=== PATIENT | male | born 1960 | race Caucasian/White ===

== ENCOUNTER 2023-07-22 18:05 | Inpatient (IN) | payer OTHER, SELFPAY ==
[2023-07-22] VITALS (14 sets, daily range): BP systolic 117–166; BP diastolic 70–101; BMI 30.2
[2023-07-22 16:00] LABS: Glucose - Point of Care > 600 mg/dl (70-99)
--- NOTE | 2023-07-22 16:08 | ED.GENMED ---
History of Present Illness
<Craig Guzmán DO - Last Filed: 07/22/23 17:20>
General
Chief Complaint: Seizure
Time Seen by Provider: 07/22/23 15:59
Travel History
Have you had any contact with someone who has COVID-19?: Unable to Answer
Do you have any symptoms of coronavirus? Fever > 100 degrees, chills, cough, shortness of breath, sore throat, loss of taste or smell, muscle aches, or headache?: Unable to Answer
<Darius Gardner PA-C - Last Filed: 07/22/23 19:13>
General
Source: ambulance crew
History of Present Illness
History of Present Illness:
63-year-old male presenting to the emergency department via EMS after he was found at home next to his bed, reportedly had fallen and had questionable seizure. EMS states upon their arrival patient had slurred speech and was unable to stand on his
own and they felt he had a rightward drift. After getting patient into the truck they noticed he was having a second seizure described to be [place] tonic-clonic that resolved after 5 mg Versed IV and patient has been somnolent since. EMS notes
patient was profoundly hyperglycemic on their Accu-Chek. Unable to obtain any history from the patient. EMS reports that patient has not been seen by a medical provider in over 10 years.
Past History
<Darius Gardner PA-C - Last Filed: 07/22/23 19:13>
Past History
ED Past Medical History: Other (Unknown)
ED Past Surgical History: Other (Unknown)
Social History
Personal:
Living: with family
Review of Systems
<Darius Gardner PA-C - Last Filed: 07/22/23 19:13>
Review of Systems
Unable to obtain full review of systems at this time due to: due to acuity
Phy Exam
<Darius Gardner PA-C - Last Filed: 07/22/23 19:13>
Physical Exam
Physical Exam:
GENERAL: Somnolent, not able to give any history, not following commands
EYE: pupils 4 mm bilateral, sluggish but reactive
NECK: Supple, no signs of trauma
ENT: o/p clr, mmm. Abrasion to the anterior portion of the tongue
CARDIAC: Tachycardic rate and rhythm
LUNGS: Clear breath sounds bilaterally, no acute respiratory distress, no wheezes/rales/rhonchi, slow respirations maintaining airway
ABDOMEN: Soft, without focal tenderness, no r/g, no cvat
NEUROLOGICAL: Unable to assess, does not follow commands
SKIN: Warm and dry, skin intact.
MUSCULOSKELETAL: No edema, well perfused.
PSYCH: Unable to assess
Scores
<Craig Guzmán DO - Last Filed: 07/22/23 17:20>
NIH Stroke Score
Total Score:: 9
<Darius Gardner PA-C - Last Filed: 07/22/23 19:13>
NIH Stroke Score
Level of Consciousness: 2 - Obtunded
LOC Questions: 2-Neither correct
LOC Commands: 2-Performs neither correctly
Best Horizontal Gaze: 0-Normal
Visual Cruz: 0=Normal, no visual loss
Facial Palsy: 0=Normal, symmetrical
Motor - Right Arm: 0=No drift 10 seconds
Motor - Left Arm: 0=No drift 10 seconds
Motor - Right Le-No drift 5 seconds
Motor - Left Le-No drift 5 seconds
Limb Ataxia: 0-Absent
Sensation: 0-Normal
Best Language: 3-Mute/global aphasia
Dysarthria: UN-Intubated, other
Extinction and Inattention: 0-No abnormality
Total Score:: 9
Heart Failure Risk
Heart Failure Risk Score: Not Applicable
Heart Score for Chest Pain Patients
STEMI patient?: Not applicable
Withdrawal Assessment of Alcohol
Withdrawal Assessment Completed?: Not applicable
Course
<Craig Guzmán, DO - Last Filed: 07/22/23 17:20>
Orders/Labs/Results
Orders:
Orders
07/22/23 15:53
EKG [Electrocardiogram (*1)] Urgent
Reason for Study: Tachycardia
EKG- Treatment ONCE
07/22/23 15:59
CT Head W/o Cont STROKE ALERT Urgent
Comment:
Reason For Exam: new seizure
0.9% Sodium Chloride 1000 ml [Nss] 1,000 ml IV BOLUS
Levetiracetam Injectable [Keppra] 1,000 mg IV NOW STA
07/22/23 16:02
Alcohol Urgent
CBC/With Diff [Complete Blood Count/With Diff] Urgent
CMP [Comprehensive Metabolic Panel] Urgent
Glycohemoglobin (HgbA1c) Urgent
Levetiracetam Injectable [Keppra] 2,000 mg IV NOW STA
07/22/23 16:09
Type+Screen Urgent
PTT Urgent
Prothrombin Time Urgent
Troponin I Urgent
Venous Blood Gas Urgent
%Oxygen/Room Air: RA
07/22/23 16:11
Lorazepam [Ativan] 1 mg IV NOW STA
07/22/23 16:12
Lorazepam [Ativan] 2 mg .ROUTE .STK-MED ONE
07/22/23 16:13
EKG [Electrocardiogram (*1)] Urgent
Reason for Study: Tachycardia
EKG- Treatment ONCE
07/22/23 16:14
0.9% Sodium Chloride [Nss (Preservative Free)] 0.5 ml IV NOW STA
07/22/23 16:27
Add On- LAB Urgent
Tests Added?: Hemoglobin A1c
07/22/23 16:29
CR Chest Portable - 1 View Urgent
Comment:
Reason For Exam: coma
Reason Study Needs to be Portable: Unable to Transport
07/22/23 16:37
Toney Placement- Treatment ONCE
Reason for insertion: I&O's Critical Care
07/22/23 16:48
Add On- LAB Routine
Comments:: Please add to today's labs or draw as routine
Tests Added?: EtOH
07/22/23 16:51
Urinalysis Reflex To Culture Urgent
Date Specimen was Collected: 07/22/23
Time Specimen was Collected: 16:49
Urine Drug Abuse Screen Urgent
Date Specimen was Collected: 07/22/23
Time Specimen was Collected: 16:49
07/22/23 16:57
Bedside Glucose- Treatment Q1H
0.9% Sodium Chloride 1000 ml [Nss] 1,000 ml IV BOLUS
0.9% Sodium Chloride 1000 ml [Nss] 1,000 ml IV BOLUS
Reg Insulin 100 Units/100 ml [Novolin R Insulin Infusion] 100 units in 100 ml IV NOW
07/22/23 17:36
Admit/Transfer Patient As Directed
Co-Sign Provider:
Level of Care: Inpatient admission
Assign to:: ICU
Physician / Group: Chavez
Diagnosis: New DM with DKA and new onset of seizures
Reason for Hospitalization: see progress note
Expected length of stay greater than two midnights?: Yes
ELOS- Estimated Length of Stay in days: 4
I certify the patient meets the requirements for IP care: Yes
07/22/23 17:38
Code Status As Directed
Resuscitation Status: Full Code
07/22/23 18:01
Basic Metabolic Panel Q2H
07/22/23 19:00
Basic Metabolic Panel Q2H
07/22/23 21:00
Basic Metabolic Panel Q2H
07/23/23 Breakfast
NPO
Allow oral meds: No
Allow clear liquids: No
Abnormal Lab Results
07/22/23 07/22/23 07/22/23
15:58 16:02 16:09
MCV 78.8 L fL
(80.0-94.0)
MCHC 37.1 H g/dL
(33.0-37.0)
Abs Immat Gran (auto) 0.1 H 10^3/uL
(0-0.05)
Absolute Lymphs (auto) 0.6 L 10^3/uL
(1.2-3.4)
Immature Gran % 0.8 H %
(0-0.5)
Neutrophils % 82.5 H %
(42.2-75.2)
Lymphocytes % 9.7 L %
(20.5-51.1)
VBG pCO2 33 L mmHg
(35-48)
VBG pO2 126 H mmHg
(30-50)
VBG HCO3 18.6 L mmol/L
(22-27)
Sodium 131 L mmol/L
(135-145)
Chloride 96 L mmol/L
(98-107)
Carbon Dioxide 13 L* mmol/L
(22-30)
Glucose 685 H* mg/dl
(70-99)
Urine Ketones
Urine Glucose
POC Glucose > 600 H* mg/dl
(70-99)
07/22/23 07/22/23 07/22/23
16:51 17:55 18:01
MCV
MCHC
Abs Immat Gran (auto)
Absolute Lymphs (auto)
Immature Gran %
Neutrophils %
Lymphocytes %
VBG pCO2
VBG pO2
VBG HCO3
Sodium 130 L mmol/L
(135-145)
Chloride
Carbon Dioxide
Glucose 690 H* mg/dl
(70-99)
Urine Ketones Trace A
(Negative)
Urine Glucose 3+ A
(Negative)
POC Glucose > 600 H* mg/dl
(70-99)
07/22/23 16:02
07/22/23 18:01
Vital Signs
Initial and Last Documented VS:
Initial Vital Signs
BP
154/101
07/22/23 15:54
Last Documented Vital Signs
Temp Pulse Resp BP Pulse Ox
98.2 F 113 27 155/93 98
07/22/23 18:06 07/22/23 19:00 07/22/23 19:00 07/22/23 19:00 07/22/23 19:00
<Darius Gardner PA-C - Last Filed: 07/22/23 19:13>
Orders/Labs/Results
Orders:
Orders
07/22/23 15:53
EKG [Electrocardiogram (*1)] Urgent
Reason for Study: Tachycardia
EKG- Treatment ONCE
07/22/23 15:59
CT Head W/o Cont STROKE ALERT Urgent
Comment:
Reason For Exam: new seizure
0.9% Sodium Chloride 1000 ml [Nss] 1,000 ml IV BOLUS
Levetiracetam Injectable [Keppra] 1,000 mg IV NOW STA
07/22/23 16:02
Alcohol Urgent
CBC/With Diff [Complete Blood Count/With Diff] Urgent
CMP [Comprehensive Metabolic Panel] Urgent
Glycohemoglobin (HgbA1c) Urgent
Levetiracetam Injectable [Keppra] 2,000 mg IV NOW STA
07/22/23 16:09
Type+Screen Urgent
PTT Urgent
Prothrombin Time Urgent
Troponin I Urgent
Venous Blood Gas Urgent
%Oxygen/Room Air: RA
07/22/23 16:11
Lorazepam [Ativan] 1 mg IV NOW STA
07/22/23 16:12
Lorazepam [Ativan] 2 mg .ROUTE .STK-MED ONE
07/22/23 16:13
EKG [Electrocardiogram (*1)] Urgent
Reason for Study: Tachycardia
EKG- Treatment ONCE
07/22/23 16:14
0.9% Sodium Chloride [Nss (Preservative Free)] 0.5 ml IV NOW STA
07/22/23 16:27
Add On- LAB Urgent
Tests Added?: Hemoglobin A1c
07/22/23 16:29
CR Chest Portable - 1 View Urgent
Comment:
Reason For Exam: coma
Reason Study Needs to be Portable: Unable to Transport
07/22/23 16:37
Toney Placement- Treatment ONCE
Reason for insertion: I&O's Critical Care
07/22/23 16:48
Add On- LAB Routine
Comments:: Please add to today's labs or draw as routine
Tests Added?: EtOH
07/22/23 16:51
Urinalysis Reflex To Culture Urgent
Date Specimen was Collected: 07/22/23
Time Specimen was Collected: 16:49
Urine Drug Abuse Screen Urgent
Date Specimen was Collected: 07/22/23
Time Specimen was Collected: 16:49
07/22/23 16:57
Bedside Glucose- Treatment Q1H
0.9% Sodium Chloride 1000 ml [Nss] 1,000 ml IV BOLUS
0.9% Sodium Chloride 1000 ml [Nss] 1,000 ml IV BOLUS
Reg Insulin 100 Units/100 ml [Novolin R Insulin Infusion] 100 units in 100 ml IV NOW
07/22/23 17:36
Admit/Transfer Patient As Directed
Co-Sign Provider:
Level of Care: Inpatient admission
Assign to:: ICU
Physician / Group: Scott
Diagnosis: New DM with DKA and new onset of seizures
Reason for Hospitalization: see progress note
Expected length of stay greater than two midnights?: Yes
ELOS- Estimated Length of Stay in days: 4
I certify the patient meets the requirements for IP care: Yes
07/22/23 17:38
Code Status As Directed
Resuscitation Status: Full Code
07/22/23 18:01
Basic Metabolic Panel Q2H
07/22/23 19:00
Basic Metabolic Panel Q2H
07/22/23 21:00
Basic Metabolic Panel Q2H
07/23/23 Breakfast
NPO
Allow oral meds: No
Allow clear liquids: No
Abnormal Lab Results
07/22/23 07/22/23 07/22/23
15:58 16:02 16:09
MCV 78.8 L fL
(80.0-94.0)
MCHC 37.1 H g/dL
(33.0-37.0)
Abs Immat Gran (auto) 0.1 H 10^3/uL
(0-0.05)
Absolute Lymphs (auto) 0.6 L 10^3/uL
(1.2-3.4)
Immature Gran % 0.8 H %
(0-0.5)
Neutrophils % 82.5 H %
(42.2-75.2)
Lymphocytes % 9.7 L %
(20.5-51.1)
VBG pCO2 33 L mmHg
(35-48)
VBG pO2 126 H mmHg
(30-50)
VBG HCO3 18.6 L mmol/L
(22-27)
Sodium 131 L mmol/L
(135-145)
Chloride 96 L mmol/L
(98-107)
Carbon Dioxide 13 L* mmol/L
(22-30)
Glucose 685 H* mg/dl
(70-99)
Urine Ketones
Urine Glucose
POC Glucose > 600 H* mg/dl
(70-99)
07/22/23 07/22/23 07/22/23
16:51 17:55 18:01
MCV
MCHC
Abs Immat Gran (auto)
Absolute Lymphs (auto)
Immature Gran %
Neutrophils %
Lymphocytes %
VBG pCO2
VBG pO2
VBG HCO3
Sodium 130 L mmol/L
(135-145)
Chloride
Carbon Dioxide
Glucose 690 H* mg/dl
(70-99)
Urine Ketones Trace A
(Negative)
Urine Glucose 3+ A
(Negative)
POC Glucose > 600 H* mg/dl
(70-99)
07/22/23 16:02
07/22/23 18:01
Vital Signs
Initial and Last Documented VS:
Initial Vital Signs
BP
154/101
07/22/23 15:54
Last Documented Vital Signs
Temp Pulse Resp BP Pulse Ox
98.2 F 113 27 155/93 98
07/22/23 18:06 07/22/23 19:00 07/22/23 19:00 07/22/23 19:00 07/22/23 19:00
Porcelain Finisher consulted with Physician
Porcelain Finisher consulted with physician?: Yes
Name of Physician Consulted: Ramirez
<AKASH Torrez Last Filed: 07/22/23 19:13>
MDM/Problems Addressed
Differential Diagnosis Includes:
Seizure, intracranial hemorrhage, stroke, diabetic complication, electrolyte derangement, less concern for infectious etiology
MDM/Problems Addressed:
63-year-old male present emergency department for evaluation of change in mental status, found by on the ground next bed with questionable seizure-like activity. Patient did have a witnessed seizure by EMS. Tongue biting and urinary
incontinence was noted. On arrival patient is obtunded and unable to answer any questions. No known medical history and has had no visits to this emergency department previously. Stroke alert was called due to patient's reported symptoms combined
with his seizure activity. It was noted to have significant hyperglycemia here as well so it is very likely patient is having an acute diabetic complication versus neurologic complication. Neuro aware and to evaluate the patient. Will give
additional Keppra for seizure prophylaxis. Patient will need admission.
<Darius Gardner PA-C - Last Filed: 07/22/23 19:13>
*Radiology
Radiology exam reviewed: radiology read reviewed
*Pulse Oximetry
Patient hypoxic: no
*Vegetable Thinner Interpretation
Rate: tachycardiac
Rhythm: sinus
*Critical Care Note
Total Time (30-74mins, 75-104mins- exclusive of procedures): 45
comment:
Critical care statement: A total of 45 minutes of critical care time was provided for this patient. This includes management of unstable vital signs, evaluation of the patient at bedside, reviewing the patient's pertinent medical records, discussion
with consultants, review of old EKGs and review of pertinent medical records. This time with separate from time utilized to perform the aforementioned documented procedures
<AKASH Torrez Last Filed: 07/22/23 19:13>
Comment
Comment:
Once patient back into the emergency department from CT he was noted to have further twitching thought to be related to further seizure activity so an additional 1 mg of Ativan was ordered in addition to the already given Versed and Keppra.
Patient Management
Discussion with other providers: Hospitalist and [employer]
Escalation/DeEscalation of care consider admission/obs:
Patient's labs reveal significant hyperglycemia and likely HHNK. Patient was started on insulin drip in addition to already given medications for seizure. Hospitalist and ICU team as well as neurology are all aware.
ED Attending Note
<Craig Guzmán, DO - Last Filed: 07/22/23 17:20>
ED Attending Note
Patient seen and examined by attending physician: Yes
I performed the substantive portion of visit, reviewed & personally made and approve the management plan that is documented in note by myself or ROSEMARY.: Yes
ED Attending Note:
Seen with PA examined independently reviewed with neurology 63-year-old male apparently has a physician in years presents with seizure x 2 initially found on the ground confused EMS was called, apparently had a tonic-clonic seizure received IV
Versed my evaluation he was postictal/was medicated no overt signs of head or neck trauma apparently did have a tongue bite Accu-Chek is high
Differential as outlined above, plan will be CT of the head cervical spine antiepileptics metabolic toxicologic traumatic workup in progress
5:20 PM patient awake alert and oriented x 3 moving all extremities, CT report noted no further seizure-like activity looks like he is DKA/HHNK message sent to neurology hospitalist and ICU attending patient was admitted to the ICU on insulin drip
family updated
-
Portions of this chart may have been created with voice recognition software.� Occasional wrong word or��sound alike� substitutions may have occurred due to the inherent limitations of voice recognition software.
Discharge Plan
Departure
Patient Disposition: Admit
Date of Disposition: 07/22/23
Time of Disposition: 16:58
Presentation/result/management discussed w/ accepting MD/DO: Hospitalist
Discharge Problem:
Hyperglycemia, Seizure, Altered mental status
Interventions
Interventions:
*Risk Screen - Suicide Last Done: 07/22/23 16:25
*General Assessment Last Done: 07/22/23 16:25
*Neglect/Abuse Screening Last Done: 07/22/23 16:25
ED- Fall Risk Assessment Last Done: 07/22/23 15:56
*ED COVID-19 Vaccine History Last Done: 07/22/23 16:25
ED- Cardiac Assessment Last Done: 07/22/23 15:56
ED- Neurological Assessment Last Done: 07/22/23 17:55
ED- Pulmonary Assessment Last Done: 07/22/23 15:56
[2023-07-22] MEDS: KEPPRA 2000 MG IV (16:14)
[2023-07-22] MEDS: NSS (PRESERVATIVE FREE) 0.5 ML IV (16:15)
[2023-07-22] MEDS: ATIVAN 1 MG IV (16:15)
[2023-07-22] MEDS: NSS 1000 IV ×2 (16:17→18:00)
[2023-07-22 16:21] LABS: % Basophils 0.7 % (0-2); % Eosinophils 0.8 % (0-6); % Immature Granulocytes 0.8 % (0-0.5); % Lymphocytes 9.7 % (20.5-51.1); % Monocytes 5.5 % (1.7-9.3); % Neutrophils 82.5 % (42.2-75.2); Absolute Eosinophils 0.1 10^3/uL (0-0.7); Absolute Immature Granulocytes 0.1 10^3/uL (0-0.05); Absolute Lymphocytes 0.6 10^3/uL (1.2-3.4); Absolute Monocytes 0.3 10^3/uL (0.1-0.6); Absolute Neutrophils 4.9 10^3/uL (1.4-6.5); Hematocrit 44.2 % (39.0-52.0); Hemoglobin 16.4 g/dL (13.0-18.0); Mean Corp Hgb Conc. 37.1 g/dL (33.0-37.0); Mean Corpuscular Hgb 29.2 pg (27.0-31.0); Mean Corpuscular Volume 78.8 fL (80.0-94.0); Mean Platelet Volume 8.9 fL (7.4-10.4); Nucleated Red Blood Cells % 0 % (-); Platelet Count 188 10^3/uL (130-400); Red Blood Cell Count 5.61 10^6/uL (4.70-6.10); Red Cell Dist. Width 13.9 % (11.5-14.5)
[2023-07-22 16:22] LABS: Venous Blood Gas B.E. -5.7 mmol/L (-4 to +4); Venous Blood Gas HCO3 18.6 mmol/L (22-27); Venous Blood Gas O2 Sat % 99.4 %; Venous Blood Gas pCO2 33 mmHg (35-48); Venous Blood Gas pH 7.36 (7.32-7.43); Venous Blood Gas pO2 126 mmHg (30-50)
--- NOTE | 2023-07-22 16:23 | CON.NEURO ---
Neuro Assessment/Plan
Assessment
Acute onset change in mental status
With generalized tonic-clonic movements and declining mental status, in addition to focal onset seizures with change of consciousness
Most likely the etiology for symptomatology is metabolic especially given the patient's blood glucose greater than 600 at this time
Plan
Goal of remediation of the patient's hyperglycemia
Initiate levetiracetam 3 g IV now with follow-up 1 g IV every 12 hours until improvement of metabolic disturbance then may gradually discontinue the medication
Consider checking EEG if the patient does not have improvement of mentation after remediation of hyperglycemia
Consider checking MRI of brain if the patient does not have improvement in mentation after improvement of hyperglycemia
Check urine drug screen and alcohol levels
No suggestion of stroke at this time and therefore the patient was not a candidate for either or intra-arterial thrombectomy
Will follow
Consultation
Order
Date of Consultation: 07/22/23
Requesting Provider: ED provider
Reason for Consult: Seizure
Subjective/Objective
Subjective Data
Date of Service: July 22, 2023
Patient was reportedly in his usual state of health until discovery by the patient's at approximately 1500 hrs. being minimally responsive and having generalized shaking. EMS was contacted and the patient brought to this hospital's emergency
department. The patient himself is unable to provide his own medical history.
Objective Data
Vital Signs
Pulse Resp BP Pulse Ox
130 16 154/101 97
07/22/23 15:55 07/22/23 15:55 07/22/23 15:55 07/22/23 15:55
Patient Allergies
No Allergy Information Available Allergy (Unverified 07/22/23 16:03)
Review of Systems
-
Unable to obtain full review of systems at this time due to: Lethargy
History Source: Patient
All other systems: Reviewed and negative
Physical Exam
-
General: No Apparent Distress, Appears Stated Age and Wearing Oxygen
Eyes: OU Absent Papilledema, Round OU, [place] Conjunctivae and No Ptosis
HEENT: Anicteric and Moist Mucous Membranes
Neck: Full Range of Motion
Respiratory: No Dyspnea
Cardiac: No JVD
GI: Non-distended
Skin: Unremarkable
Extremities: No Clubbing, No Cyanosis and No Edema
Psych: Unable to Assess
Extended Neurological Exam
Mood & Affect: Unable to Assess
Attention Span & Concentration: Interactive (On 1 occasion), Lethargic (Maintains eyes closed except for brief period), Unable to Perform 2 Step Request and Other (Did perform some one-step requests); Negative Awake or Alert
Memory: Unable to Recall Personal History and Unable to Assess
Tremor: Hand Tremor Absent and Head Tremor Absent
Involuntary Movement: Other (Patient exhibited a single episode of head turning to the left with tonic movements which were low amplitude as well as arm shaking on the right lasting for approximately 1 minute)
Speech: Quality Unremarkable and Severely Reduced Output
Cranial Nerve II: Left Eye: Pupillary Reactivity Unremarkable, Pupillary Size Unremarkable and Unable to Assess Visual Cruz
Cranial Nerve II: Right Eye: Pupillary Reactivity Unremarkable, Pupillary Size Unremarkable and Unable to Assess Visual Cruz
Cranial Nerves III, IV, : Extraocular Movement: Grossly Intact
Cranial Nerve V: Facial Sensation: Unable to Assess
Cranial Nerve VII: Facial Symmetry: Normal Facial Symmetry
Cranial Nerve VIII: Hearing: Unremarkable Hearing to Normal Conversational Volume
Cranial Nerves IX, X: Palate Movement: Unable to Assess
Cranial Nerve XI: Shoulder Shrug: Unable to Assess
Cranial Nerve XII: Tongue Protusion: Unable to Assess
Muscle Strength, Overall: Spontaneously Moves (All extremities)
Muscle Bulk & Tone: Bulk Unremarkable and Tone Unremarkable
Pronator Drift: No Drift in Upper Extremities (Limited testing) and No Drift in Lower Extremities (Limited testing)
Deep Tendon Reflexes: Trace Throughout
Cold Sensation: Unable to Assess
Vibration Sensation: Unable to Assess
Touch Sensation: Unremarkable
Coordination: Unable to Assess
Babinski Sign: Absent Bilaterally
Gait & Station: Unable to Assess
Data Reviewed
-
CT Head: Report Reviewed and Image Reviewed
Labs: Report Reviewed
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
Old Records: Summarized
Medications
-
Home Medications
�Medication �Instructions �Recorded
Unobtainable 07/22/23
[2023-07-22] MEDS: KEPPRA 1000 MG IV (16:32)
[2023-07-22 16:33] LABS: APTT 26.2 Sec (23.4-35.0); INR 0.99; PT 12.9 Sec (11.4-14.6)
[2023-07-22 16:41] LABS: Albumin 4.6 g/dl (3.5-5.0); Carbon Dioxide 13 mmol/L (22-30); Estimated Creatinine Clearance 67 ml/min; Total Protein 6.5 g/dl (6.3-8.2); eGFR > 60.00
[2023-07-22 16:46] LABS: Troponin I < 0.012 ng/ml
[2023-07-22 16:52] LABS: ALT (SGPT) 32 U/L (0-50); AST (SGOT) 27 U/L (17-59); Alkaline Phosphatase 98 U/L (38-126); Blood Urea Nitrogen 15 mg/dl (9-20); Calcium 9.9 mg/dl (8.4-10.2); Chloride 96 mmol/L (98-107); Sodium 131 mmol/L (135-145); Total Bilirubin 0.8 mg/dl (0.2-1.3)
[2023-07-22 17:04] LABS: Glucose 685 mg/dl (70-99)
[2023-07-22 17:17] LABS: Urine Albumin Negative (Neg - Trace); Urine Bilirubin Negative (Negative); Urine Character Clear (Clear); Urine Color Straw; Urine Glucose 3+ (Negative); Urine Ketone Trace (Negative); Urine Leukocyte Negative (Negative); Urine Nitrite Negative (Negative); Urine Occult Blood Negative (Negative); Urine Specific Gravity 1.015 (<1.030); Urine Urobilinogen Negative (Neg - 1+)
[2023-07-22 17:26] LABS: Alcohol None Detected
[2023-07-22 17:34] LABS: Amphetamines Negative (Negative); Barbiturates Negative (Negative); Benzodiazepines Negative (Negative); Buprenorphine Negative (Negative); Cocaine Negative (Negative); Marijuana Negative (Negative); Methadone Negative (Negative); Methamphetamines Negative (Negative); Opiates Negative (Negative); Phencyclidine Negative (Negative); Tricyclic Antidepressants Negative (Negative)
--- NOTE | 2023-07-22 17:45 | HPS.HSE ---
Family Physician
-
Family Physician: Jaziel Zavala
Chief Complaint
-
Witnessed seizures
History of Present Illness
63-year-old gentleman presented seeing a doctor in the last 10 years presented with weakness seizure.
Patient currently in the ER. Sleepy but awake able. Oriented to place in the ER. Does not remember much yesterday. Then he did remember that he had a heavy lunch and this happened afterwards.
History is from who is at bedside.
To have lunch today which is kind of heavy. After that they were lying down in the bed. He got up and looked confused. His arms were up and they are trying to grab something . He stood up and started to shake so the brought him down to the
floor. He then had another episode of tonic-clonic seizure at home. Apparently had 1 more episode with EMS.
No prior history of seizures. No history of strokes. No head trauma.
Patient does remember about yesterday-he went around and did some errands and shopping which is true. Nothing unusual or out of ordinary. Did not notice anything different with his body apparently.
He was noted to have elevated blood sugar with acidosis. No known to have diabetes mellitus. He was having some increased urination and increased thirst lately.
No history of CAD or hypertension but has not had seen a doctor in 10 years.
Medical History
Past Medical History
Past Medical History: Reports None
Past Surgical History: Reports None
Social History
Tobacco: Non-smoker
Alcohol: Occasional
Drug: None
Personal:
Living: With Family
Employment: Employed
Family History
Family History: Not pertinent
Allergies / Home Medications
Allergies reflects when Allergies were last updated in [facility].
Home Medications with original date entered in [facility]
Allergy/Medication List:
Allergies
Allergy/AdvReac Type Severity Reaction Status Date / Time
Penicillins Allergy Hives Verified 07/22/23 16:23
Home Medications
aspirin 81 mg tablet,delayed release 81 mg PO DAILY 07/22/23
garlic 1 tab PO DAILY 07/22/23
loratadine 10 mg tablet (Claritin) 10 mg PO QPM 07/22/23
Review of Systems
-
Unable to obtain full review of systems at this time due to: Other (Poor historian because of postictal state)
Physical Exam
Vital Signs
Vital Signs
Temp Pulse Resp BP Pulse Ox
98.1 F 126 18 166/91 100
07/22/23 15:55 07/22/23 17:15 07/22/23 17:15 07/22/23 17:14 07/22/23 17:15
Physical Exam
General: No Apparent Distress and Comfortable
HEENT: Moist mucous membranes
Respiratory: Clear and Non Labored Respirations; No Wheezes, Crackles or Accessory Resp Muscle Use
Cardiac: S1/S2, Regular Rhythm and Tachycardia
GI: Soft, Non Tender, Non Distended and Normal Bowel Sounds
Genito-urinary: Clear Urine and Toney
Neuro: No Awake (post ictal state but awakable;moves all 4 limbs), Slurred Speech or Facial Droop
Psych: Calm
Laboratory Results
-
07/22/23 16:02
Laboratory Results
PT 12.9 Sec (11.4-14.6) 07/22/23 16:09
INR 0.99 07/22/23 16:09
APTT 26.2 Sec (23.4-35.0) 07/22/23 16:09
Total Bilirubin 0.8 mg/dl (0.2-1.3) 07/22/23 16:02
AST 27 U/L (17-59) 07/22/23 16:02
ALT 32 U/L (0-50) 07/22/23 16:02
Alkaline Phosphatase 98 U/L (38-126) 07/22/23 16:02
Troponin I < 0.012 ng/ml 07/22/23 16:09
Data Reviewed
-
CT Scan: Report Reviewed by me (ct head)
Lab Data: Labs Reviewed by me
Impression/Plan
-
New onset of tonic-clonic generalized seizures-x 3 today. Patient postictal. Continue with Keppra per neurology. CT head shows no evidence of acute intracranial abnormality.
Cannot rule out secondary to metabolic disturbance from DKA
New diagnosis of diabetes mellitus possibly type II and DKA. No obvious triggers other than possibly large lunch today which might of tripped off the balance. Started on DKA insulin, fluid protocol. Follow potassium/BMP closely. Admit to ICU.
Check hemoglobin A1c.
Elevated blood pressure-continue to follow in ICU and consider initiating regular medication depending on the readings.
Full code
[2023-07-22 17:56] LABS: Glucose - Point of Care > 600 mg/dl (70-99)
[2023-07-22] MEDS: NOVOLIN R INSULIN INFUSION 100 IV (17:58)
[2023-07-22 18:56] LABS: Blood Urea Nitrogen 17 mg/dl (9-20); Calcium 8.8 mg/dl (8.4-10.2); Carbon Dioxide 22 mmol/L (22-30); Chloride 102 mmol/L (98-107); Estimated Creatinine Clearance 67 ml/min; Glucose 690 mg/dl (70-99); Potassium 5.1 mmol/L (3.5-5.1); Sodium 130 mmol/L (135-145); eGFR > 60.00
[2023-07-22 19:02] LABS: Glucose - Point of Care 565 mg/dl (70-99)
[2023-07-22 20:07] LABS: Glucose - Point of Care 412 mg/dl (70-99)
[2023-07-22 20:34] LABS: Blood Urea Nitrogen 16 mg/dl (9-20); Calcium 8.6 mg/dl (8.4-10.2); Carbon Dioxide 20 mmol/L (22-30); Chloride 107 mmol/L (98-107); Estimated Creatinine Clearance 87 ml/min; Glucose 377 mg/dl (70-99); Potassium 3.7 mmol/L (3.5-5.1); Sodium 132 mmol/L (135-145); eGFR > 60.00
[2023-07-22 21:24] LABS: Glucose - Point of Care 425 mg/dl (70-99)
[2023-07-22 22:14] LABS: Glucose - Point of Care 365 mg/dl (70-99)
[2023-07-22 22:41] LABS: Blood Urea Nitrogen 17 mg/dl (9-20); Calcium 8.5 mg/dl (8.4-10.2); Carbon Dioxide 19 mmol/L (22-30); Chloride 108 mmol/L (98-107); Estimated Creatinine Clearance 97 ml/min; Glucose 344 mg/dl (70-99); Potassium 3.7 mmol/L (3.5-5.1); Sodium 132 mmol/L (135-145); eGFR > 60.00
[2023-07-22 23:33] LABS: Glucose - Point of Care 327 mg/dl (70-99)
[2023-07-22] MEDS: KCL 40 MEQ PO (23:42)
[2023-07-22] MEDS: CLARITIN 10 MG PO (23:42)
[2023-07-22] MEDS: LOVENOX 40 MG SC (23:42)
[2023-07-23] VITALS (20 sets, daily range): BP systolic 109–144; BP diastolic 66–93; BMI 30.1
[2023-07-23 00:22] LABS: Glucose - Point of Care 340 mg/dl (70-99)
[2023-07-23 01:32] LABS: Glucose - Point of Care 305 mg/dl (70-99)
[2023-07-23 02:12] LABS: Glucose - Point of Care 246 mg/dl (70-99)
[2023-07-23] MEDS: D5/0.45%NACL 1000 IV (03:09)
[2023-07-23 03:22] LABS: Glucose - Point of Care 264 mg/dl (70-99)
[2023-07-23 04:35] LABS: Glucose - Point of Care 249 mg/dl (70-99)
[2023-07-23 04:48] LABS: Blood Urea Nitrogen 17 mg/dl (9-20); Calcium 8.6 mg/dl (8.4-10.2); Carbon Dioxide 21 mmol/L (22-30); Chloride 110 mmol/L (98-107); Estimated Creatinine Clearance 125 ml/min; Glucose 213 mg/dl (70-99); Potassium 4.4 mmol/L (3.5-5.1); Sodium 136 mmol/L (135-145); eGFR > 60.00
--- NOTE | 2023-07-23 05:25 | PTCARENOTE ---
07/22/23 - received pt from ER, patient arrived with family at bedside. assessments completed, admission done.
pt offers no complaints of pain or discomfort, (only with peralta) will d/c
no current orders,
pt is on insulin gtt at 6 will titrate per protocol
07/23/23 pt continues on q1 hr blood glucose,
dropped below 250 and now d5 half nss ordered,
continue with checks
18g iv placed in LFA
pt on clear liq diet
0400- labs drawn and sent, K+ replaced earlier, so no need for any replacements.
pt resting comfortably while watching TV,
cell phone with in reach,
no further needs at this time
[2023-07-23 05:35] LABS: Glucose - Point of Care 206 mg/dl (70-99)
[2023-07-23 06:15] LABS: Glucose - Point of Care 186 mg/dl (70-99)
[2023-07-23 07:10] LABS: Glucose - Point of Care 166 mg/dl (70-99)
[2023-07-23 08:15] LABS: Glucose - Point of Care 227 mg/dl (70-99)
--- NOTE | 2023-07-23 08:26 | W.PN.HOSP.TC ---
Today's Communication/Plan
-
DC IV insulin-switch to subcutaneous insulin
Start on oral diet
Transfer to telemetry
Assessment / Plan
Assessment / Plan
New onset of tonic-clonic generalized seizures-x 3 on day of admission . Resolved postictal state. Patient currently at his baseline. Continue with Kemandira per neurology. CT head shows no evidence of acute intracranial abnormality.
New diagnosis of diabetes mellitus possibly type II and DKA. No obvious triggers other than possibly large lunch today which might of tripped off the balance. Resolved DKA. Needed 2 units/h average insulin based on the need since admission.
Switch to subcutaneous insulin-Lantus on nutritional insulin. Add sliding scale insulin. Start on a diabetic diet. Hemoglobin A1c pending
Elevated blood pressure-blood pressure reading under goal without medication.
Full code
Transfer to telemetry
Discussed with patient about new onset of diabetes and need of subcutaneous insulin at recent short-term. He is agreeable. Will ask diabetic nurse practitioner to see him tomorrow.
Total time spent on today's encounter was 52 minutes which included time spent in counseling the patient regarding diagnosis and treatment plan as listed above, goals of care, and symptom management. Case was discussed with nursing staff,
specialists, . All labs and imaging personally reviewed by me. Remainder the time spent in detailed review of previous records, lab data, imaging, and other medical provider documentation.
DC in a.m. if stable
Anticipated Discharge: Within 24 hours
Subjective/Interval History
-
Date of Service: July 23, 2023
No further seizures
No nausea or vomiting. Has an appetite for morning breakfast.
Objective Data
-
Labs:
Laboratory Results
07/22/23 07/22/23 07/23/23
20:07 22:00 00:00
Sodium 132 L 132 L Cancelled
Potassium 3.7 D 3.7 Cancelled
Chloride 107 108 H Cancelled
Carbon Dioxide 20 L 19 L Cancelled
BUN 16 17 Cancelled
Creatinine 1.0 0.9 Cancelled
Glucose 377 H 344 H Cancelled
Calcium 8.6 8.5 Cancelled
07/23/23 07/23/23 07/23/23
02:00 04:14 06:00
Sodium Cancelled 136 Cancelled
Potassium Cancelled 4.4 Cancelled
Chloride Cancelled 110 H Cancelled
Carbon Dioxide Cancelled 21 L Cancelled
BUN Cancelled 17 Cancelled
Creatinine Cancelled 0.7 Cancelled
Glucose Cancelled 213 H Cancelled
Calcium Cancelled 8.6 Cancelled
07/23/23
08:00
Sodium Cancelled
Potassium Cancelled
Chloride Cancelled
Carbon Dioxide Cancelled
BUN Cancelled
Creatinine Cancelled
Glucose Cancelled
Calcium Cancelled
Vital Signs:
Vital Signs
Temp Pulse Resp BP Pulse Ox
99.1 F 106 21 117/72 96
07/23/23 07:26 07/22/23 23:30 07/22/23 23:30 07/22/23 23:30 07/22/23 23:30
I&O
07/22/23 07/23/23 07/24/23
06:59 06:59 06:59
Output Total 2149
Balance -2149
Review of Systems
-
Constitutional: Denies Fever
Respiratory: Denies Trouble Breathing
Cardiac: Denies Chest Pain
Neuro: Denies Dizzy or Headache
Physical Exam
-
General: No Apparent Distress
HEENT: Moist Mucous Membranes
Respiratory: Clear to Auscultation
Cardiac: Regular Rhythm and S1/S2
GI: Soft and Nontender
Neuro: AO x 3 and No Motor Deficits
Psych: Calm; Negative Confused or Agitated
Data Reviewed
-
Labs: Labs Reviewed by me
--- NOTE | 2023-07-23 09:06 | W.PN.NEURO.1 ---
Today's Communication / Plan
-
Goal of remediation of the patient's hyperglycemia
may gradually discontinue levetiracetam as the patient is now fully conscious and there has been a remediation of the hyperglycemia
Not clear at this time patient require reporting to [facility] despite episode of seizure as the patient variance the same due to metabolic disturbance
Neuro Assessment/Plan
Assessment
Acute onset change in mental status
With generalized tonic-clonic movements and declining mental status, in addition to focal onset seizures with change of consciousness
Most likely the etiology for symptomatology is metabolic
Plan
Goal of remediation of the patient's hyperglycemia
may gradually discontinue levetiracetam as the patient is now fully conscious and there has been a remediation of the hyperglycemia
Not clear at this time patient require reporting to [facility] despite episode of seizure as the patient variance the same due to metabolic disturbance
Will follow as needed.
Subjective/Objective
Subjective Data
Date of Service: July 23, 2023
No symptoms. Patient recalls being unable to stand.
Objective Data
Vital Signs
Temp Pulse Resp BP Pulse Ox
37.3 C 106 21 117/72 96
07/23/23 07:26 07/22/23 23:30 07/22/23 23:30 07/22/23 23:30 07/22/23 23:30
Lab Results
07/22/23 16:02
07/23/23 08:00
PT 12.9 Sec (11.4-14.6) 07/22/23 16:09
INR 0.99 07/22/23 16:09
APTT 26.2 Sec (23.4-35.0) 07/22/23 16:09
Sodium Cancelled 07/23/23 08:00
Potassium Cancelled 07/23/23 08:00
BUN Cancelled 07/23/23 08:00
Glucose Cancelled 07/23/23 08:00
Calcium Cancelled 07/23/23 08:00
Ur Buprenorphine Negative (Negative) 07/22/23 16:51
Patient Allergies
Penicillins Allergy (Verified 07/22/23 16:23)
Hives
Review of Systems
-
History Source: Patient
All other systems: Reviewed and negative
EENT: Negative Decreased Vision or Swallowing Difficulty
Respiratory: Negative Trouble Breathing
Cardiac: Negative Chest Pain
Abdomen/GI: Negative Incontinence of Stool
Genitourinary: Negative Incontinence
Musculoskeletal: Negative Back Pain or Neck Pain
Physical Exam
-
General: No Apparent Distress and Appears Stated Age
Eyes: Round OU, Shirley Conjunctivae and No Ptosis
HEENT: Anicteric and Moist Mucous Membranes
Neck: Full Range of Motion
Respiratory: No Dyspnea
Cardiac: No JVD
GI: Non-distended
Skin: Unremarkable
Extremities: No Clubbing, No Cyanosis and No Edema
Psych: Negative Intact Judgement/Insight
Extended Neurological Exam
Mood & Affect: Negative Affect Unremarkable (Dismissive)
Attention Span & Concentration: Awake, Alert, Interactive and Other (No difficulty with one-step requests)
Memory: Unremarkable and Unable to Assess
Tremor: Hand Tremor Absent and Head Tremor Absent
Involuntary Movement: None
Speech: Quality Unremarkable and Quantity Unremarkable
Cranial Nerve II: Left Eye: Pupillary Size Unremarkable and Visual Cruz Grossly Intact
Cranial Nerve II: Right Eye: Pupillary Size Unremarkable and Visual Cruz Grossly Intact
Cranial Nerves III, IV, : Extraocular Movement: Grossly Intact
Cranial Nerve VII: Facial Symmetry: Normal Facial Symmetry
Cranial Nerve VIII: Hearing: Unremarkable Hearing to Normal Conversational Volume
Muscle Strength, Overall: Spontaneously Moves
Muscle Bulk & Tone: Bulk Unremarkable and Tone Unremarkable
Pronator Drift: No Drift in Upper Extremities
Coordination: [id number] Testing Unremarkable
Data Reviewed
-
CT Head: Report Reviewed
Labs: Report Reviewed
Reviewed with: Physician, Patient and Family
Old Records: Summarized
Past History
Past History
ED Past Medical History: Other (Unknown)
ED Past Surgical History: Other (Unknown)
Social History
Personal:
Living: with family
Medications
-
Medications:
Generic Name Dose Route Start Last Admin
Trade Name Freq PRN Reason Stop Dose Admin
Aspirin 81 mg 07/23/23 08:00
Aspirin 81 Mg (Enteric Coated) Tablet PO 08/20/23 07:59
DAILY RIGOBERTO
Enoxaparin Sodium 40 mg 07/22/23 20:25 07/22/23 23:42
Enoxaparin Sodium 40 Mg/0.4 Ml Syringe SC 08/19/23 20:24 40 mg
QPM RIGOBERTO Administration
Hydralazine HCl 5 mg 07/22/23 20:25
Hydralazine 20 Mg/Ml Vial IV 08/19/23 20:24
Q4HPRN PRN
sbp>160 or dbp>100
Insulin Glargine 10 units/ 0.1 mls @ 0 mls/hr 07/23/23 22:00
Device SC 08/20/23 21:59
BID@0800,2200 RIGOBERTO
As Directed
Insulin Glargine 10 units/ 0.1 mls @ 0 mls/hr 07/23/23 08:58
Device SC 07/23/23 08:59
ONCE ONE
As Directed
Insulin Aspart 0 units 07/23/23 11:30
Insulin Aspart Low Resistance 300 Units/3 Ml Pen.Injctr SC 08/20/23 11:29
AC RIGOBERTO
Protocol
Insulin Aspart 5 units 07/23/23 08:52
Insulin Aspart (100 Units/Ml) 3 Ml Flexpen SC 08/20/23 08:50
AC RIGOBERTO
Insulin Aspart 5 units 07/23/23 08:58
Insulin Aspart (Novolog) 100 Units/1 Ml 10 Ml Vial SC 07/23/23 08:59
NOW STA
Levetiracetam 1,000 mg 07/23/23 08:00
Levetiracetam (100 Mg/Ml) 500 Mg/5 Ml Vial IV 08/20/23 07:59
Q12 RIGOBERTO
Loratadine 10 mg 07/22/23 20:25 07/22/23 23:42
Loratadine 10 Mg Tablet PO 08/19/23 20:24 10 mg
QPM RIGOBERTO Administration
Sodium Chloride 0 flush 07/22/23 21:00
Sodium Chloride 0.9% (Flush) Syringe IV 08/19/23 20:59
PER PROTOCOL RIGOBERTO
[2023-07-23 09:09] LABS: Glucose - Point of Care 229 mg/dl (70-99)
--- NOTE | 2023-07-23 09:09 | PTCARENOTE ---
Vital signs captured from previous shift. Pt AOx3. Ordered a diabetic diet. Plan to given SQ insulin and DC gtt. Will transfer to floor.
[2023-07-23] MEDS: ASPIR LOW (ENTERIC COATED) 81 MG PO (09:23)
[2023-07-23] MEDS: KEPPRA 1000 MG IV (09:23)
[2023-07-23] MEDS: NOVOLOG FLEXPEN 5 UNITS SC ×3 (09:28→16:55)
[2023-07-23] MEDS: LANTUS 0.100000000000000006 UNITS SC ×2 (09:28→21:12)
--- NOTE | 2023-07-23 09:32 | PTCARENOTE ---
Insulin gtt and IVFs dc'd. SQ insulin administered w/ teaching done. Pt eating breakfast now.
[2023-07-23 10:36] LABS: Glycohemoglobin (HgbA1c) 13.3 % (4.0-5.6)
--- NOTE | 2023-07-23 10:50 | PTCARENOTE ---
Received pt. via wheelchair from ICU. Pt. VSS, no c/o pain at this time. Pt. resting in bed with at bedside. Call mitchell in reach.
[2023-07-23 11:51] LABS: Glucose - Point of Care 338 mg/dl (70-99)
[2023-07-23] MEDS: NOVOLOG FLEXPEN-LOW RESISTANCE 4 UNITS SC (12:02)
--- NOTE | 2023-07-23 12:05 | PTCARENOTE ---
Pt. reports voiding a large amount in the bathroom at 1115. Will continue to monitor and report on pt.
[2023-07-23 16:41] LABS: Glucose - Point of Care 278 mg/dl (70-99)
[2023-07-23] MEDS: CLARITIN 10 MG PO (16:55)
[2023-07-23] MEDS: NOVOLOG FLEXPEN-LOW RESISTANCE 3 UNITS SC (16:55)
[2023-07-23] MEDS: LOVENOX 40 MG SC (16:55)
[2023-07-23 21:08] LABS: Glucose - Point of Care 291 mg/dl (70-99)
[2023-07-24 03:27] VITALS: BP 136/80
[2023-07-24 07:14] LABS: Glucose - Point of Care 279 mg/dl (70-99)
[2023-07-24 07:55] VITALS: BP 149/94
[2023-07-24] MEDS: NOVOLOG FLEXPEN 5 UNITS SC (08:01)
[2023-07-24] MEDS: ASPIR LOW (ENTERIC COATED) 81 MG PO (08:01)
[2023-07-24] MEDS: NOVOLOG FLEXPEN-LOW RESISTANCE 3 UNITS SC (08:01)
[2023-07-24] MEDS: LANTUS 0.100000000000000006 UNITS SC (08:02)
[2023-07-24 08:39] LABS: Blood Urea Nitrogen 14 mg/dl (9-20); Carbon Dioxide 22 mmol/L (22-30); Chloride 107 mmol/L (98-107); Estimated Creatinine Clearance 124 ml/min; Glucose 269 mg/dl (70-99); Potassium 4.2 mmol/L (3.5-5.1); Sodium 136 mmol/L (135-145); eGFR > 60.00
--- NOTE | 2023-07-24 09:15 | PN.DE.MGMTRT ---
Insulin Management
- -
07/24/2023: Diabetes Management Consult:
63 year old male admitted due to Acute onset change in mental status With generalized tonic-clonic movements with change of consciousness.
Pt has no significant medical hx or diabetes dx but has also not seen a doctor in > 10 years. He reports having some increased urination and increased thirst lately. His glucose was 690 on admission, A1C 13.3%, Cr 1.3-->0.7 today, eGFR>60. He was
started on Lantus 10 units @ HS and NovoLog 5 units AC. Pt seen in room, sitting up at edge of bed. Awake, A/Ox3, no seizure activity noted, able to participate in discussed about diabetes management.
His blood sugars have remained elevated, premeal 227 to 338, requiring 3-4 units of additional corrective insulin
Will increase NovoLog to 10 units AC. FBG has been elevated as well, 213 yesterday and 269 this AM. Will increase Lantus to 15 units @ HS.
Will start Metformin 500mg BID. Cont low corrective with meals. Change diet from 2200 saul to 1800 saul ADA diet
Pt was provided with instructions on Monitor use and insulin administration. Extra BD andres needles left with Nurse for pt to start self adm his insulin at lunch time.
Will add scripts for insulin and monitor supplies.
Diabetes History
- -
Type of Diabetes: 2 requiring insulin
Pre-Admission Diabetes Regimen
07/24/23
07:06
Creatinine 0.7
Lab Results
Hemoglobin A1c 13.3 % (4.0-5.6) H 07/22/23 16:02
Insulin Pump Settings
IP Diabetes Regimen
07/23/23 07/23/23 07/23/23
11:50 16:39 21:06
Glucose
POC Glucose 338 H 278 H 291 H
07/24/23 07/24/23
07:06 07:12
Glucose 269 H
POC Glucose 279 H
Meal type: Dinner
Meal type: Lunch
Meal type: Breakfast
Amount consumed: 100%
Amount consumed: 100%
Amount consumed: 100%
Patient Education
--- NOTE | 2023-07-24 10:11 | W.PN.HOSP.TC ---
Today's Communication/Plan
-
Follow on tele
Check ECHO ,DDimer
Start on Low dose metoprolol
Assessment / Plan
Assessment / Plan
New onset of tonic-clonic generalized seizures-x 3 on day of admission . Resolved postictal state. Patient currently at his baseline. Further Keppra discontinued by neurology. CT head shows no evidence of acute intracranial abnormality.
New diagnosis of diabetes mellitus possibly type II and DKA. No obvious triggers other than possibly large lunch today which might of tripped off the balance. Resolved DKA. Needed iv 2 units/h average insulin based on the need since admission.
Switched to subcutaneous insulin-Lantus n nutritional insulin. cw sliding scale insulin. cw diabetic diet. Hemoglobin A1c 13.3. 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
Elevated blood pressure-no hx of HTN. Follow and tx .
Sinus tachycardia - asymptomatic. Remains tachycardic despite correction of electrolyte disturbances. Check a TSH, D-dimer and echocardiogram. He has ol inferior infarct changes. His admitting troponin was negative.Follow on tele.Start on low
dose metoprolol.
Full code
Hold on DC
Total time spent on today's encounter was 52 minutes which included time spent in counseling the patient regarding diagnosis and treatment plan as listed above, goals of care, and symptom management. Case was discussed with nursing staff,
specialists, . All labs and imaging personally reviewed by me. Remainder the time spent in detailed review of previous records, lab data, imaging, and other medical provider documentation.
Anticipated Discharge: Within 24 hours
Subjective/Interval History
-
Date of Service: July 24, 2023
Patient with voicing no specific complaints.
Feels much better than Monday.
Denies any chest pain, palpitations or shortness of breath. Denies weakness. No fever or chills.
Denies prior history of cardiac disease but has not seen a doctor in 10 years.
No further seizures.
Tolerating diet without issues.
Objective Data
-
Labs:
Laboratory Results
07/24/23
07:06
Sodium 136
Potassium 4.2
Chloride 107
Carbon Dioxide 22
BUN 14
Creatinine 0.7
Glucose 269 H
Calcium 9.0
Vital Signs:
Vital Signs
Temp Pulse Resp BP Pulse Ox
98.8 F 104 16 149/94 98
07/24/23 07:55 07/24/23 07:55 07/24/23 07:55 07/24/23 07:55 07/24/23 08:00
I&O
07/23/23 07/24/23 07/25/23
06:59 06:59 06:59
Intake Total 0 / 1680
Output Total 2149 / 0
Balance -2150 / -0 0 / 1680
Review of Systems
-
Constitutional: Denies Fever
EENT: Denies Sore Throat
Respiratory: Denies Cough
Neuro: Denies Dizzy or Headache
Physical Exam
-
General: No Apparent Distress
HEENT: Moist Mucous Membranes
Respiratory: Clear to Auscultation
Cardiac: Regular Rhythm, S1/S2 and Tachycardic
GI: Soft, Nontender, Nondistended and Normal Bowel Sounds
Musculoskeletal: No Edema
Neuro: AO x 3
Psych: Calm; Negative Confused
Data Reviewed
-
Labs: Labs Reviewed by me
[2023-07-24 10:46] LABS: D-Dimer 0.41 ug/mlFEU (0.00-0.50)
[2023-07-24] MEDS: GLUCOPHAGE 500 MG PO ×2 (10:48→16:36)
[2023-07-24] MEDS: LOPRESSOR 25 MG PO ×2 (10:48→19:57)
[2023-07-24 11:39] LABS: TSH 1.11 uIU/ml (0.47-4.68)
[2023-07-24 11:55] VITALS: BP 145/90
[2023-07-24 12:11] LABS: Glucose - Point of Care 316 mg/dl (70-99)
[2023-07-24] MEDS: NOVOLOG FLEXPEN-LOW RESISTANCE 4 UNITS SC (12:26)
[2023-07-24] MEDS: NOVOLOG FLEXPEN 10 UNITS SC ×2 (12:26→16:37)
[2023-07-24 15:55] VITALS: BP 121/74
--- NOTE | 2023-07-24 16:19 | CM ---
Alert awake oriented patient who lives with his Aneta who lives in a 2 story home with 2 step to enter and 13 steps to bed and bathroom.He is independent in driving and in all activities of daily living.He was offered Vn he declined need.
No VN/SNF history
Pharmacy [facility] [place]
PCP DR Zavala retired Pt will call insurance company to find new PCP
PLAN Home Declined VN
[2023-07-24] MEDS: NOVOLOG FLEXPEN-LOW RESISTANCE 2 UNITS SC (16:37)
[2023-07-24 16:42] LABS: Glucose - Point of Care 244 mg/dl (70-99)
[2023-07-24] MEDS: LOVENOX 40 MG SC (17:26)
[2023-07-24] MEDS: CLARITIN 10 MG PO (17:26)
[2023-07-24 19:55] VITALS: BP 153/87
[2023-07-24 21:18] LABS: Glucose - Point of Care 258 mg/dl (70-99)
[2023-07-24] MEDS: LANTUS 0.149999999999999994 UNITS SC (21:46)
[2023-07-24 23:33] VITALS: BP 114/64
[2023-07-24 23:37] LABS: Glucose - Point of Care 317 mg/dl (70-99)
[2023-07-25] MEDS: NOVOLOG FLEXPEN 5 UNITS SC (00:16)
--- NOTE | 2023-07-25 00:44 | PTCARENOTE ---
Patient with profuse sweating, stable vitals. Blood sugar is 317. CRYSTAL Berg made aware. New order for 5u of NovoLog SC.
[2023-07-25 02:48] LABS: Glucose - Point of Care 298 mg/dl (70-99)
[2023-07-25 03:09] VITALS: BP 120/78
[2023-07-25 08:11] LABS: Glucose - Point of Care 268 mg/dl (70-99)
[2023-07-25 08:21] VITALS: BP 158/89
[2023-07-25] MEDS: NOVOLOG FLEXPEN-LOW RESISTANCE 3 UNITS SC ×2 (09:26→13:22)
[2023-07-25] MEDS: NOVOLOG FLEXPEN 14 UNITS SC (09:27)
[2023-07-25] MEDS: GLUCOPHAGE 500 MG PO ×2 (09:29→16:49)
[2023-07-25] MEDS: ASPIR LOW (ENTERIC COATED) 81 MG PO (09:29)
[2023-07-25] MEDS: LOPRESSOR 25 MG PO (09:29)
[2023-07-25] MEDS: NOVOLOG FLEXPEN SC ×2 (09:34→16:50)
--- NOTE | 2023-07-25 10:13 | W.PN.HOSP.TC ---
Today's Communication/Plan
-
DC planning
Assessment / Plan
Assessment / Plan
New onset of tonic-clonic generalized seizures-x 3 on day of admission . Resolved postictal state. Patient currently at his baseline. Further Keppra discontinued by neurology. CT head shows no evidence of acute intracranial abnormality.
New diagnosis of diabetes mellitus possibly type II and DKA. No obvious triggers other than possibly large lunch today which might of tripped off the balance. Resolved DKA. Switched to subcutaneous insulin-Lantus n nutritional insulin
-Increase dose today again. cw sliding scale insulin. cw diabetic diet. Hemoglobin A1c 13.3. 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
Elevated blood pressure-no hx of HTN. Most of the readings and at goal except this morning. Hold at treatment initiation. Follow-up with the PCP. He got a new PCP appointment.
Sinus tachycardia - asymptomatic. TSH, D-dimer normal ; ECHO with no WMA and normal EF. Was initiated on low-dose beta-jeffrey yesterday. Heart rate now pretty good ,in fact was karina overnight on telemetry. I suspect sinus tachycardia is
more reactive . Hold further beta-jeffrey.
Full code
Follow Accu-Cheks noted today and if continued improvement will DC patient home. Patient is comfortable during insulin and Accu-Cheks.
he says he is going to be compliant with his treatments and follow-up.
Total time of discharge 32 minutes.
Anticipated Discharge: Today
Subjective/Interval History
-
Date of Service: July 25, 2023
Feeling much improved.
Comfortable doing insulin and checking blood sugars.
No further seizures.
Voices no specific complaints.
Tolerating diet.
Objective Data
-
Vital Signs:
Vital Signs
Temp Pulse Resp BP Pulse Ox
98.3 F 83 18 158/89 100
07/25/23 08:21 07/25/23 09:29 07/25/23 08:21 07/25/23 09:29 07/25/23 08:21
I&O
07/24/23 07/25/23 07/26/23
06:59 06:59 06:59
Intake Total 1919
Balance 1919
Review of Systems
-
Constitutional: Denies Fever
EENT: Denies Sore Throat
Respiratory: Denies Trouble Breathing
Cardiac: Denies Chest Pain
Abdomen/GI: Denies Abdominal Pain, Nausea or Vomiting
Neuro: Denies Dizzy
Physical Exam
-
General: No Apparent Distress
HEENT: Moist Mucous Membranes
Respiratory: Clear to Auscultation
Cardiac: Regular Rhythm and S1/S2
GI: Soft, Nontender, Nondistended and Normal Bowel Sounds
Neuro: AO x 3
Data Reviewed
-
Medical Tests (Nuc Med, Echo etc): Report Reviewed by me (ECHO)
Labs: Labs Reviewed by me
--- NOTE | 2023-07-25 11:02 | PN.DE.MGMTRT ---
Insulin Management
- -
07/25/2023: Diabetes Management Consult Follow up:
Patient admitted Acute onset change in mental status With generalized tonic-clonic movements with change of consciousness.
Pt has not been to a doctor in over 10 years so no significant medical hx or diabetes dx. He reports having some increased urination and increased thirst lately. His glucose was 690 on admission, A1C 13.3%, 0.7 today, eGFR>60. He was started on
Lantus 10 units @ HS and NovoLog 5 units AC.
Pt seen in room, sitting up at edge of bed. Awake, alert and oriented, no seizure activity noted, able to participate in discussion about diabetes management.
His blood sugars have remained elevated, premeal 244 to 316, requiring 3-4 units of additional corrective insulin
Dr. Chavez has increased lantus to 25 and AC novolog to 15 units. Will make no change. Patient may be discharged today.
Pt was provided with instructions on Monitor use and insulin administration. Patient states he is comfortable administering insulin and testing his glucose.
Will add scripts for insulin and monitor supplies.
Diabetes History
- -
Type of Diabetes: 2 requiring insulin
Pre-Admission Diabetes Regimen
Lab Results
Hemoglobin A1c 13.3 % (4.0-5.6) H 07/22/23 16:02
Insulin Pump Settings
IP Diabetes Regimen
07/24/23 07/24/23 07/24/23
12:06 16:40 21:16
POC Glucose 316 H 244 H 258 H
07/24/23 07/25/23 07/25/23
23:35 02:47 08:00
POC Glucose 317 H 298 H 268 H
Meal type: Breakfast
Meal type: Dinner
Meal type: Lunch
Amount consumed: 100%
Amount consumed: 100%
Amount consumed: 100%
Patient Education
[2023-07-25 11:48] LABS: Glucose - Point of Care 269 mg/dl (70-99)
[2023-07-25 12:02] VITALS: BP 146/99
[2023-07-25] MEDS: NOVOLOG FLEXPEN 15 UNITS SC (13:22)
--- NOTE | 2023-07-25 14:30 | CM ---
Spoke with patient in room .
He said he was ready for discharge to home.
Offered VN he declined.
His Aneta will drive him home.
PLAN Home no needs
[2023-07-25 16:15] LABS: Glucose - Point of Care 118 mg/dl (70-99)
[2023-07-25 16:18] VITALS: BP 158/92
--- NOTE | 2023-07-25 16:24 | PTCARENOTE ---
Pt AAO x3, ALVAREZ well, ambulatory in room/to BR; no c/o weakness/dizziness. VSS. On room air- pulse ox 98%, no SOB noted. Abd large, soft, mena 1800 saul diet well. Voiding in BR without difficulty. Resting in chair at present, no c/o; anticipating
DC home. Will continue to monitor.
--- NOTE | 2023-07-25 16:32 | W.DS.TRANS ---
DC Summary - [employer]
-
Discharge Instructions:
Discharge Diagnosis/Procedures New DM 2 with DKA ; new seizures felt sec to
metabolic disturbances
Diet Diabetic, Carb Controlled
Activity As tolerated
Driving Restrictions As prior to admission
Bathing Restrictions None
Instructions:
Stand-Alone Forms:
Changes to Home Medications: Yes
Discharge Medications:
DC Medications w/original date entered in [employer]
aspirin 81 mg tablet,delayed release 81 mg PO DAILY Blood Clot Prevention/Tx 07/22/23
garlic 1 tab PO DAILY Supplement 07/22/23
loratadine 10 mg tablet (Claritin) 10 mg PO QPM Allergies 07/22/23
metformin 500 mg tablet 500 mg PO BID@0800,1700 Diabetes #60 tabs 07/24/23
pen needle, diabetic 32 gauge x 5/32' (BD Ultra-Fine Darlene Pen Needle) #200 ea 07/24/23
blood sugar diagnostic (Contour Next Test Strips) #200 ea 07/25/23
insulin aspart U-100 100 unit/mL (3 mL) subcutaneous pen (Novolog FlexPen U-100 Insulin aspart) 15 unit (0.15 mL) SC AC #5 ea 07/25/23
insulin glargine 100 unit/mL (3 mL) subcutaneous pen (Basaglar KwikPen U-100 Insulin) 25 unit (0.25 mL) SC HS #5 ea 07/25/23
lancets 21 gauge (Color Lancets) #200 ea 07/25/23
Home Medication Changes
New med - Lantus , Novolog, metformin
Pending Results: No
[2023-07-25] MEDS: NOVOLOG FLEXPEN-LOW RESISTANCE SC (16:50)
== END 2023-07-25 17:34 | disposition home or self-care (01) | DRG 639 ==
LOC: 4 EAST ACU 18:05
PROVIDERS: Physician Assistant Medical; ADMITTING PHYSICIAN Internal Medicine; EMERGENCY PHYSICIAN Emergency Medicine; FAMILY PHYSICIAN Family Medicine; OTHER PHYSICIAN Psychiatry & Neurology Neurology
DX: E11.10 Type 2 diabetes mellitus with ketoacidosis without coma (principal)
CPT/HCPCS: 51702; 70450; 71045; 80048; 80053; 80306; 81003; 82077; 82805; 82962; 83036; 84443; 84484; 85025; 85379; 85610; 85730; 86850; 86900; 86901; 93005; 93306; 96365; 96366; 96375; 99291